=== PATIENT | male | born 1985 | race Caucasian/White ===

== ENCOUNTER 2024-11-05 22:33 | Emergency (ER) | payer MEDICAID ==
[~2024-11-05] VITALS: Ht 180.3 cm; Wt 102.0 kg
[2024-11-05 22:45] VITALS: TEMP 36.8; O2SAT 99
[2024-11-06 01:18] LABS: BASOPHILS % 0.6 % (0.0-2.0); EOSINOPHILS % 3.8 % (0.0-5.0); HEMATOCRIT. 41.6 % (42.0-52.0); HEMOGLOBIN. 13.9 g/dL (14.0-18.0); LYMPHOCYTES % 41.4 % (20.0-50.0); MEAN PLATELET VOLUME 9.1 fl (7.4-10.4); MONOCYTES % 7.8 % (2.0-8.0); NEUTROPHILS % 46.4 % (40.0-76.0); PLATELET 219 x1000/uL (130-400); RED BLOOD CELL COUNT 4.57 mill/uL (4.7-6.1); RED CELL DISTRIBUTION WIDTH 13.2 % (11.6-14.6)
[2024-11-06 01:33] LABS: CREATININE 1.0 mg/dL (0.6-1.3)
[2024-11-06 01:34] LABS: UREA NITROGEN BLOOD 8 mg/dL (9-23)
[2024-11-06] MEDS: POTASSIUM CHLORIDE 20MEQ/PACKET PO ONE (02:17)
[2024-11-06 02:20] VITALS: BP 131/86; PULSE 71; RESP 14; O2SAT 99
== END 2024-11-06 02:21 | disposition home or self-care (01) ==
LOC: ER 22:40
DX: E87.6 Hypokalemia (principal); Z90.49 Acquired absence of other specified parts of digestive tract; Z79.899 Other long term (current) drug therapy
CPT/HCPCS: 36415; 80048; 85025; 99283